=== PATIENT | male | born 1940 | race Two or more races ===

== ENCOUNTER 2017-06-24 19:29 | Emergency (ER) | payer MEDICARE, OTHER ==
[~2017-06-24] VITALS: Ht 170.2 cm; Wt 68.0 kg
[2017-06-24 19:35] VITALS: BP 93/46
[2017-06-24] MEDS ORDERED: Cefepime HCl 2 GM in NS 110 ML IV STA (20:02)
[2017-06-24] MEDS ORDERED: Ipratropium 0.02% Inh Soln 2.5ml UD HHN ONE (20:15)
[2017-06-24] MEDS ORDERED: Albuterol ud Inhalation HHN ONE (20:15)
[2017-06-24] MEDS ORDERED: Sodium Chloride 500ML 500 ML IV ONE (20:15)
[2017-06-24] MEDS ORDERED: Azithromycin 500 MG in NS 275 ML IV ONE (20:15)
[2017-06-24 20:27] LABS: BASOPHILS % (AUTO) 0.6 % (0.0-2.0); EOSINOPHILS % (AUTO) 0.9 % (0.0-3.0); HEMATOCRIT 35.9 % (42.0-52.0); HEMOGLOBIN 12.2 G/DL (14.2-18.0); LYMPHOCYTES % (AUTO) 5.5 % (20.0-45.0); MEAN CORPUSCULAR VOLUME 98 FL (80-99); MONOCYTES % (AUTO) 10.5 % (1.0-10.0); NEUTROPHILS % (AUTO) 82.5 % (45.0-75.0); PLATELET COUNT 207 K/UL (150-450); RED BLOOD COUNT 3.66 M/UL (4.70-6.10); RED CELL DISTRIBUTION WIDTH 14.2 % (11.6-14.8); WHITE BLOOD COUNT 11.9 K/UL (4.8-10.8)
[2017-06-24 20:29] LABS: ANION GAP 9 mmol/L (5-15); BLOOD UREA NITROGEN 25 mg/dL (7-18); CALCIUM 8.6 MG/DL (8.5-10.1); CARBON DIOXIDE 29 MMOL/L (21-32); CHLORIDE 102 MMOL/L (98-107); POTASSIUM 3.2 MMOL/L (3.5-5.1); SODIUM 140 MMOL/L (136-145)
[2017-06-24 20:30] LABS: INR 1.2 (0.9-1.1)
[2017-06-24 20:41] LABS: ALANINE AMINOTRANSFERASE 87 U/L (12-78); ALBUMIN 2.5 G/DL (3.4-5.0); ALBUMIN/GLOBULIN RATIO 0.8 (1.0-2.7); ALKALINE PHOSPHATASE 173 U/L (46-116); ASPARTATE AMINO TRANSFERASE 114 U/L (15-37); CREATINE KINASE 49 U/L (26-308)
--- NOTE | 2017-06-24 20:55 | Emergency Room Report ---
History of Present Illness General Chief Complaint: Altered Level of Consciousness Source: Family Member, EMS Present Illness HPI The patient presents after having a syncopal episode. He was standing in before he passed out. Paramedics were summoned. The patient was agitated and there is a language barrier. He was in respiratory distress with hypoxia. Field glucose normal. According to supervisor of officials, patient was walking with a walker and became short of breath and pale then lost consciousness. He was assisted to the ground and regained consciousness without seizure activity. He was short of breath after waking again with respiratory distress. The patient had dialysis earlier today. Family states that he usually runs a low blood pressure. They deny him having had syncope in the past. The patient denies any symptoms to me and appear to have some functional decline. Post pacemaker. No known heart attacks. He has had an irregular heart in the past. He had dialysis today - they state no problems. Rare urine production. Has had a cough for 5 months. The cough now is worsened. 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 Reviewed Nursing Documentation: PMH: Agreed; PSxH: Agreed Nursing Documentation-PMH Hx Dialysis: Yes - ESRD Review of Systems All Other Systems: negative except mentioned in HPI Physical Exam Vital Signs Date Time Temp Pulse Resp B/P (MAP) Pulse Ox O2 Delivery O2 Flow Rate FiO2 06/24/17 19:24 98.1 75 16 107/65 99 Non-Rebreather 15.0 98.1 06/24/17 20:38 36 Sp02 EP Interpretation: reviewed, normal, abnormal - low as interpreted by me General Appearance: moderate distress, Chronically Ill Head: normocephalic, atraumatic Eyes: bilateral eye normal inspection, bilateral eye PERRL ENT: moist mucus membranes Neck: supple Respiratory: accessory muscle use, rhonchi - L lung field, wheezing, expiration , other - vascath R Cardiovascular #1: regular rate, rhythm Cardiovascular #2: 2+ radial (R) Gastrointestinal: normal inspection, non tender, no mass, non-distended, decreased bowel sounds Musculoskeletal: back normal, gait/station normal, normal range of motion Neurologic: alert, motor strength/tone normal - tremor, DTRs symmetric, sensory intact, speech normal Psychiatric: anxious Skin: warm/dry, pallor, cyanosis Medical Decision Making Diagnostic Impression: Primary Impression: Syncope Qualified Codes: R55 - Syncope and collapse Additional Impressions: Hypotension (arterial) Qualified Codes: I95.9 - Hypotension, unspecified Bronchospasm Hypoxia Early pnemonia ESRD (end stage renal disease) on dialysis ER Course The patient presents after syncopal episode. In addition to that paramedics found hypoxia and respiratory distress. Differential includes hypotension, acute myocardial infarction, arrhythmia, vasovagal, aspiration, exacerbation of COPD, posttussive syncope amongst others. The patient is in moderate distress at this time needs to be assessed and stabilized. He will be evaluated with an EKG, CT the head, chest x-ray and labs. His significant comorbidities and is at risk for myocardial injury. Based on his exam there is a high suspicion of pneumonia with bronchospasm. The patient is also hypotensive. Family state that he is usually hypotensive. Also they state that he's having a cough for 5 months. They're insisting that the patient go to [facility]. I stated to them that I needed to stabilize the patient as much as I could and that he should be admitted here. They're insisting that he go to [facility] and plan sign out AGAINST MEDICAL ADVICE but agree to proceed with emergent treatment. EKG shows paced rhythm. Chest x-ray shows left-sided infiltrate increased heart size Vas-Cath and pacemaker. A CT of the head shows small vessel disease no acute stroke is visible. The patient is treated with a small fluid bolus for hypotension. In addition to that antibiotics are begun. Aggressive breathing treatments are provided with improvement. Again I advised the patient that the patient should be admitted here. They're insisting that ago. They translated of the risk of . The patient still is insisting that he goes to [facility]. I contacted [facility] to try to arrange for transfer and [facility] listed they are not accepting any transfers at this time. The patient is improved but still is in serious condition. Room air O2 sat is 91-95% at this time. Blood pressures improved. Signed out AMA and transported by family. Laboratory Tests Test 06/24/17 19:57 White Blood Count 11.9 K/UL (4.8-10.8) H Red Blood Count 3.66 M/UL (4.70-6.10) L Hemoglobin 12.2 G/DL (14.2-18.0) L Hematocrit 35.9 % (42.0-52.0) L Mean Corpuscular Volume 98 FL (80-99) Mean Corpuscular Hemoglobin 33.4 PG (27.0-31.0) H Mean Corpuscular Hemoglobin Concent 34.0 G/DL (32.0-36.0) Red Cell Distribution Width 14.2 % (11.6-14.8) Platelet Count 207 K/UL (150-450) Mean Platelet Volume 7.2 FL (6.5-10.1) Neutrophils (%) (Auto) 82.5 % (45.0-75.0) H Lymphocytes (%) (Auto) 5.5 % (20.0-45.0) L Monocytes (%) (Auto) 10.5 % (1.0-10.0) H Eosinophils (%) (Auto) 0.9 % (0.0-3.0) Basophils (%) (Auto) 0.6 % (0.0-2.0) Prothrombin Time 12.2 SEC (9.30-11.50) H Prothrombin Time INR 1.2 (0.9-1.1) H PTT 30 SEC (23-33) Sodium Level 140 MMOL/L (136-145) Potassium Level 3.2 MMOL/L (3.5-5.1) L Chloride Level 102 MMOL/L (98-107) Carbon Dioxide Level 29 MMOL/L (21-32) Anion Gap 9 mmol/L (5-15) Blood Urea Nitrogen 25 mg/dL (7-18) H Creatinine 2.0 MG/DL (0.55-1.30) H Estimate Glomerular Filtration Rate mL/min (>60) Glucose Level 144 MG/DL (74-106) H Lactic Acid Level 2.40 mmol/L (0.66-2.22) H Calcium Level 8.6 MG/DL (8.5-10.1) Total Bilirubin 1.0 MG/DL (0.2-1.0) Aspartate Amino Transferase (AST) 114 U/L (15-37) H Alanine Aminotransferase (ALT) 87 U/L (12-78) H Alkaline Phosphatase 173 U/L (46-116) H Total Creatine Kinase 49 U/L (26-308) Troponin I 0.037 ng/mL (0.000-0.056) Pro-B-Type Natriuretic Peptide 08741 pg/mL (0-125) H Total Protein 5.8 G/DL (6.4-8.2) L Albumin 2.5 G/DL (3.4-5.0) L Globulin 3.3 g/dL Albumin/Globulin Ratio 0.8 (1.0-2.7) L EKG Diagnostic Results Rate: normal Rhythm: other - paced ST Segments: no acute changes Rhythm Strip Diag. Results EP Interpretation: yes Rhythm: no PVC's, no ectopy, other - paced Chest X-Ray Diagnostic Results Chest X-Ray Diagnostic Results : Chest X-Ray Ordered: Yes # of Views/Limited/Complete: 1 View Indication: Shortness of Breath Interpretation: no pneumothorax, other - vascath, pacer, increased markings L , increased cor, vas congestion Impression: Other Electronically Signed by: Electronically signed by Leo Saeed MD CT/MRI/US Diagnostic Results CT/MRI/US Diagnostic Results : Imaging Test Ordered: head Impression small vessel disease, no stroke or bleed Last Vital Signs Date Time Temp Pulse Resp B/P (MAP) Pulse Ox O2 Delivery O2 Flow Rate FiO2 06/24/17 22:30 98.1 74 17 101/51 96 Room Air 98.1 06/24/17 20:49 2.0 28 O2 sat on room air 94%. Status: improved Disposition: AGAINST MEDICAL ADVICE Condition: Serious Referrals: NON PHYSICIAN (PCP) Leo Saeed M.D. Jun 24, 2017 20:55
[2017-06-24 21:05] VITALS: BP 99/48
[2017-06-24 22:15] VITALS: BP 101/51
[2017-06-24 22:30] VITALS: BP 101/51
--- NOTE | 2017-06-25 09:04 | Diagnostic Imaging Report ---
Indication: Syncope Technique: Contiguous 5 mm thick transaxial imaging of the head obtained in a Siemens Sensation [address] scanner. Soft tissue and bone windows generated. Automatic Exposure Control was utilized. Total Dose length Product (DLP): 1312.[address] Dose Index Volume (CTDIvol): 70.38 mGy Comparison: none Findings: There is moderate prominence of the ventricles, basal cisterns, and cerebral sulci consistent with atrophy. Moderate, nonspecific, white matter hypoattenuation is noted throughout the brain consistent with chronic small vessel disease. There is no midline shift, edema, acute hemorrhage, mass effect, or abnormal extra-axial fluid collections. Bones and extra osseous soft tissues are unremarkable. 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 Impression: No acute intracranial bleed, mass effect or edema. Moderate atrophy of the brain. Evidence of chronic small vessel disease involving white matter tracts. Other incidental findings. [facility] has communicated the preliminary results to the Emergency Department. Their findings are largely concordant with this report. The CT scanner at [facility] is accredited by the [employer] and the scans are performed using dose optimization techniques as appropriate to a performed exam including Automatic Exposure control.
--- NOTE | 2017-06-25 10:20 | Diagnostic Imaging Report ---
Indication: Dyspnea Comparison: None A single view chest radiograph was obtained. Findings: Interstitial densities are present within the lungs. The heart is mildly enlarged. There is a right jugular permacath and left-sided pacemaker noted. Bones are osteopenic. IMPRESSION: Interstitial edema mild in degree
--- NOTE | 2017-06-25 16:53 | Cardiology Report ---
APPROVED REPORT EKG Measurement Heart [id number] v pacing
== END 2017-06-24 22:30 | disposition left against medical advice (07) ==
LOC: EDBD 19:29 → EMR 20:25 → EDBEDREQ 20:44 → EMR 22:30
DX: R55 Syncope and collapse (principal); I95.9 Hypotension, unspecified; J98.01 Acute bronchospasm; R09.02 Hypoxemia; J18.9 Pneumonia, unspecified organism; N18.6 End stage renal disease; Z99.2 Dependence on renal dialysis; Z95.0 Presence of cardiac pacemaker; I73.9 Peripheral vascular disease, unspecified
CPT/HCPCS: 36415; 70450; 71045; 80053; 82550; 83605; 83880; 84484; 85025; 85610; 85730; 87040; 93005; 94640; 94664; 96361; 96374; 96375; 99284; J0456; J7040; J7050